=== PATIENT | male | born 1995 | race Hispanic/Latino ===

== ENCOUNTER 2018-11-22 21:11 | Emergency (ER) | payer MEDICAID ==
[~2018-11-22] VITALS: Ht 167.6 cm; Wt 113.4 kg
[2018-11-22] VITALS (7 sets, daily range): BP systolic 129–170; BP diastolic 61–72
[~2018-11-22 21:11] MED LIST: AUGMENTIN 875-1 EACH PO
--- NOTE | 2018-11-22 21:15 | Emergency Room Report ---
History of Present Illness General Chief Complaint: Alcohol Intoxication Source: Patient Present Illness HPI Patient is a 30-year-old male brought in by EMS after increased altered mental status. Patient smelled of alcohol. History is markedly limited by patient's mental status. Allergies: Coded Allergies: UNABLE TO ASSESS (Unverified , 11/22/18) Patient History Past Medical History: see triage record Reviewed Nursing Documentation: PMH: Agreed; PSxH: Agreed Nursing Documentation-PMH Past Medical History Deferred: Pt Cognitively Impaired Review of Systems All Other Systems: negative except mentioned in HPI Physical Exam Vital Signs Date Time Temp Pulse Resp B/P (MAP) Pulse Ox O2 Delivery O2 Flow Rate FiO2 11/22/18 21:05 112 18 190/60 97 Room Air Sp02 EP Interpretation: reviewed, normal General Appearance: normal inspection, well appearing, no apparent distress, alert, GCS 15 Head: atraumatic ENT: normal ENT inspection, hearing grossly normal, normal voice Neck: normal inspection, full range of motion, supple, no bony tend Respiratory: normal inspection, lungs clear, normal breath sounds, no respiratory distress, no retraction, no wheezing Cardiovascular #1: regular rate, rhythm, no edema Gastrointestinal: normal inspection, normal bowel sounds, non tender, soft, no guarding, no hernia Genitourinary: no CVA tenderness Musculoskeletal: normal inspection, back normal, normal range of motion Neurologic: normal inspection, alert, responsive Psychiatric: normal inspection, judgement/insight normal, mood/affect normal Skin: normal inspection, normal color, no rash Medical Decision Making Restraint Attestation I, Magdiel Quiñonez MD, have personally evaluated this patient. Laboratory tests have been reviewed and addressed accordingly. The patient is deemed to present a danger to themselves and/or others. This is based on the exam, history ( provided by patient, EMS/[facility] and/or family) and observed or reported behavior. Attempts for non-invasive measures have been considered and/or attempted, however, have been futile. It is in the best interest of the nursing staff, the patient, and others involved in this patient's care that behavioral restraints be applied. Patient evaluation reveals the following: Marked agitation, unsteady gait and near fall. Diagnostic Impression: Primary Impression: Acute alcoholic intoxication ER Course Patient presented for altered mental status. Differential diagnosis include was not limited to alcohol intoxication, intracranial hemorrhage, medication overdose, developmental delay. Because of complexity of patient's case laboratory testing and imaging studies were ordered. Patient appears to be intoxicated with alcohol. Patient was briefly placed in restraints due to agitation. Patient was given Haldol and restraints were subsequently released. Patient was noted to be somewhat somnolent this afterward. Laboratory testing was notable for markedly elevated blood alcohol level. Patient was noted to have some gradual improvement in his mental status. Labs Test 11/22/18 21:51 White Blood Count 12.2 K/UL (4.8-10.8) Red Blood Count 4.80 M/UL (4.70-6.10) Hemoglobin 16.1 G/DL (14.2-18.0) Hematocrit 48.1 % (42.0-52.0) Mean Corpuscular Volume 100 FL (80-99) Mean Corpuscular Hemoglobin 33.6 PG (27.0-31.0) Mean Corpuscular Hemoglobin Concent 33.6 G/DL (32.0-36.0) Red Cell Distribution Width 10.9 % (11.6-14.8) Platelet Count 396 K/UL (150-450) Mean Platelet Volume 6.1 FL (6.5-10.1) Neutrophils (%) (Auto) 61.7 % (45.0-75.0) Lymphocytes (%) (Auto) 29.5 % (20.0-45.0) Monocytes (%) (Auto) 7.6 % (1.0-10.0) Eosinophils (%) (Auto) 0.1 % (0.0-3.0) Basophils (%) (Auto) 1.1 % (0.0-2.0) Urine Color Pale yellow Urine Appearance Clear Urine pH 6 (4.5-8.0) Urine Specific Johnston 1.010 (1.005-1.035) Urine Protein Negative (NEGATIVE) Urine Glucose (UA) Negative (NEGATIVE) Urine Ketones Negative (NEGATIVE) Urine Blood Negative (NEGATIVE) Urine Nitrite Negative (NEGATIVE) Urine Bilirubin Negative (NEGATIVE) Urine Urobilinogen Normal MG/DL (0.0-1.0) Urine Leukocyte Esterase Negative (NEGATIVE) Sodium Level 144 MMOL/L (136-145) Potassium Level 3.7 MMOL/L (3.5-5.1) Chloride Level 106 MMOL/L (98-107) Carbon Dioxide Level 28 MMOL/L (21-32) Anion Gap 10 mmol/L (5-15) Blood Urea Nitrogen 8 mg/dL (7-18) Creatinine 1.0 MG/DL (0.55-1.30) Estimat Glomerular Filtration Rate > 60 mL/min (>60) Glucose Level 108 MG/DL (74-106) Calcium Level 8.5 MG/DL (8.5-10.1) Total Bilirubin 0.2 MG/DL (0.2-1.0) Aspartate Amino Transf (AST/SGOT) 60 U/L (15-37) Alanine Aminotransferase (ALT/SGPT) 95 U/L (12-78) Alkaline Phosphatase 144 U/L (46-116) Total Protein 8.6 G/DL (6.4-8.2) Albumin 4.4 G/DL (3.4-5.0) Globulin 4.2 g/dL Albumin/Globulin Ratio 1.0 (1.0-2.7) Salicylates Level 2.6 ug/mL (2.8-20) Urine Opiates Screen Negative (NEGATIVE) Acetaminophen Level < 3 MCG/ML (10-30) Urine Barbiturates Screen Negative (NEGATIVE) Phencyclidine (PCP) Screen Negative (NEGATIVE) Urine Amphetamines Screen Negative (NEGATIVE) Urine Benzodiazepines Screen Negative (NEGATIVE) Urine Cocaine Screen Negative (NEGATIVE) Urine Marijuana (THC) Screen Negative (NEGATIVE) Serum Alcohol 392 mg/dL Last Vital Signs Date Time Temp Pulse Resp B/P (MAP) Pulse Ox O2 Delivery O2 Flow Rate FiO2 11/22/18 21:05 112 18 190/60 97 Room Air Status: improved Disposition: HOME, SELF-CARE Condition: Stable Scripts Unable to Obtain Active Prescriptions or Reported Meds Magdiel Quiñonez MD Nov 22, 2018 21:15
--- NOTE | 2018-11-22 21:17 | NUR ---
ED Nurse Note: PATIENT ETOH AT INTERSECTION OF KELL AND MATUTE. pt presents with no trauma. pt is able to ambulate. pt pupils are round and reactive to light.
[2018-11-22] MEDS ORDERED: Haloperidol 5mg/ml Inj IM ONE (21:45)
[2018-11-22 22:07] LABS: APPEARANCE,URINE CLEAR; BILIRUBIN, URINE NEGATIVE (NEGATIVE); COLOR,URINE PALE YELLOW; GLUCOSE, URINE (UA) NEGATIVE (NEGATIVE); KETONES,URINE NEGATIVE (NEGATIVE); LEUKOCYTE ESTERASE ,URINE NEGATIVE (NEGATIVE); NITRITE,URINE NEGATIVE (NEGATIVE); PH,URINE 6 (4.5-8.0); PROTEIN,URINE NEGATIVE (NEGATIVE); UROBILINOGEN,URINE NORMAL MG/DL (0.0-1.0)
[2018-11-22 22:12] LABS: BASOPHILS % (AUTO) 1.1 % (0.0-2.0); EOSINOPHILS % (AUTO) 0.1 % (0.0-3.0); HEMATOCRIT 48.1 % (42.0-52.0); HEMOGLOBIN 16.1 G/DL (14.2-18.0); LYMPHOCYTES % (AUTO) 29.5 % (20.0-45.0); MEAN CORPUSCULAR VOLUME 100 FL (80-99); MONOCYTES % (AUTO) 7.6 % (1.0-10.0); NEUTROPHILS % (AUTO) 61.7 % (45.0-75.0); PLATELET COUNT 396 K/UL (150-450); RED CELL DISTRIBUTION WIDTH 10.9 % (11.6-14.8); WHITE BLOOD COUNT 12.2 K/UL (4.8-10.8)
[2018-11-22 22:17] LABS: ANION GAP 10 mmol/L (5-15); BLOOD UREA NITROGEN 8 mg/dL (7-18); CALCIUM 8.5 MG/DL (8.5-10.1); CARBON DIOXIDE 28 MMOL/L (21-32); CHLORIDE 106 MMOL/L (98-107); POTASSIUM 3.7 MMOL/L (3.5-5.1); SODIUM 144 MMOL/L (136-145)
[2018-11-22 22:24] LABS: ALANINE AMINOTRANSFERASE 95 U/L (12-78); ALBUMIN 4.4 G/DL (3.4-5.0); ALKALINE PHOSPHATASE 144 U/L (46-116); ASPARTATE AMINO TRANSFERASE 60 U/L (15-37); BILIRUBIN,TOTAL 0.2 MG/DL (0.2-1.0)
--- NOTE | 2018-11-22 22:49 | NUR ---
ED Nurse Note: Pt became agitated with staff when ask to lay in bed for medical treatment and medical assesment. pt commented on staff memeber stating "[facility] are you [facility]?" pt also began pulling on vital sign lines (while standing) what takes blood pressure, O2 sat, and Heart rate, making his gait unsteady and at risk for falls. pt also began innapropriately touching female staff members chest area. security was summonded to calm pt down, talking intervention unsuccessfull, security felt retraints (L and R wrist) would be neccessary, as well as medical staff and MD valenzuela. RNs will monitor pt for food, toileting, pulse and sensations on ordered L and R wrist/ hands, as well as vital signs and neuro check. RN will also montor readiness for restraints such as calming down measures, if the pt is complaiant, if the pt can answer alert and orient times 4 (person/ place/ time/ situation). as of now, pts alert and oriention is not appropriate, pt cannont answer where he is or why he is here. PT offered toileting/ bed jensen, vital sign check O2/ Blood pressure/ heart rate, food sandwhich/ water, blanket, venting measures such as how the pt is emotionally feeling at this time. pulse and sensation check on all extremites (especially L and R wrist.) neuro and pupil check. airway is patent, pt is able to breath normally with a room air O2 sat as 99%.
--- NOTE | 2018-11-22 23:37 | NUR ---
ED Nurse Note: at this time, MD ordered removal of restraints/ restraints are removed.. pt skin is normal, no skin abnormalities noted. pulse and sensation is noted. pt cap refill on all extremites is less than 3. pt is asleep righ now. vital signs are stable. RN is at pt bed side to reassess. pt offered food/ sanwhich, toileting. pt refused food, however pt was able to walk towards bathroom with steady gait. pt retured back to bed and returned to sleep. at this time pt does not show evidence of self harm or harm to others. pt is breathing within normal limits/ no respritoy distress and is satting at 99% on room air. pupils are round and reactive to light. pt bed is set on the lowest setting with both guard rails up to prevent falls. RN will remain monitoring pt for any complication or if harm to others or self.
[2018-11-23 00:55] VITALS: BP 140/63
[2018-11-23 03:00] VITALS: BP 137/64
[2018-11-23 05:10] VITALS: BP 134/62
--- NOTE | 2018-11-23 05:11 | NUR ---
ED Nurse Note: PT report handed off/ all information, pt status, report and vital signs reported to Vickey Fraser RN.
--- NOTE | 2018-11-23 05:14 | NUR ---
ED Nurse Note: pt on gurney, vs stable. no complaint at the moment. will continue to monitor.
--- NOTE | 2018-11-23 05:22 | NUR ---
ED Nurse Note: pt gave number of dad molly [phone] but no answer. pt endorsed to jethro araujo rn and transfered to ortho room.
--- NOTE | 2018-11-23 05:22 | NUR ---
ED Nurse Note: Received patient from MANISHA Lozano. Patient ambulated with steady gate from bed 5 to Ortho. AO4. NAD. VSS. Ready for discharge; awaiting call back from Ric cisneros.
--- NOTE | 2018-11-23 05:41 | NUR ---
ED Nurse Note: Left message for father; awaiting callback.
--- NOTE | 2018-11-23 07:10 | NUR ---
HAND-OFF: Report given to MANISHA Taylor. Patient in stable condition. Plan of care endorsed.
[2018-11-23 07:48] VITALS: BP 128/70
--- NOTE | 2018-11-23 07:48 | NUR ---
ED Nurse Note: Pt cleared by [facility] provider for discharge. ACI/prescription given and explained to pt and verbalized understanding of teachings provided. All medical devices such as ID band/IV removed. Pt is AAO x4, ambulatory and left with all personal belongings. Pt was picked up by his dad.
== END 2018-11-23 07:48 | disposition home or self-care (01) ==
LOC: EDBD 21:11 → EMR 21:42 → MERGE 21:42 → EMR 11-23 07:48
DX: F10.120 Alcohol abuse with intoxication, uncomplicated (principal)
CPT/HCPCS: 36415; 80053; 80307; 80329; 81003; 85025; 96372; 99284; J1630